=== PATIENT | male | born 1980 | race Caucasian/White ===

== ENCOUNTER 2017-12-16 20:47 | Inpatient (IN) | payer MEDICAID, OTHER ==
[~2017-12-16] VITALS: Ht 180.3 cm; Wt 85.8 kg
[2017-12-16 23:00] LABS: Amphetamine Screen, Urine POSITIVE (NEGATIVE); Barbiturate Scree,Urine NEGATIVE (NEGATIVE); Benzodiazephine Screen, Urine NEGATIVE (NEGATIVE); Cannabinoid Screen, Urine NEGATIVE (NEGATIVE); Cocaine Screen, Urine NEGATIVE (NEGATIVE); Opiate Scree,Urine NEGATIVE (NEGATIVE); Phencyclidine Screen, Urine NEGATIVE (NEGATIVE)
[2017-12-17 04:53] LABS: Hemoglobin 12.1 g/dL (13.5-17.5)
[2017-12-17 04:56] LABS: Hematocrit 34.7 % (41.0-53.0); Mean Corpuscular Hemoglobin 35.1 pg (28.0-32.0); Mean Corpuscular Hgb Conc. 34.8 g/dL (32.0-36.0); Platelet Count (auto) 79 10^3/uL (140-450); Red Blood Cells 3.44 10^6/uL (4.5-5.90); Red Cell Distribution Width 13.2 % (11.8-14.3); White Blood Cell 5.8 10^3/uL (4.4-10.8)
[2017-12-17 05:12] LABS: INR 1.05 (0.9-1.15); Partial Thromboplastin Time 27.3 sec (23.78-33.04); Prothrombin Time 11.2 sec (9.27-12.13)
[2017-12-17 05:14] LABS: Band Neutrophils % (manual) 0; Blast Cells 0; Metamyelocytes % 0; Myelocytes % 0; Promyelocytes % 0; Reactive Lymphocytes 0
[2017-12-17 05:18] LABS: Alanine Aminotransferase 75 U/L (16-61); Albumin 3.4 g/dL (3.4-5.0); Alkaline Phosphatase 269 U/L (45-117); Anion Gap 15 (5-15); Aspartate Aminotransferase 168 U/L (15-37); BUN/Creatinine Ratio 22.5; Bilirubin, Total 2.9 mg/dL (0.2-1.0); Blood Urea Nitrogen 18 mg/dL (7-18); Calcium 8.5 mg/dL (8.5-10.1); Carbon Dioxide 19 mmol/L (21-32); Chloride 102 mmol/L (98-107); GFR African American 141 mL/min; GFR Non-African American 116 mL/min; Glucose 98 mg/dL (74-106); Sodium 136 mmol/L (136-145)
[2017-12-17 05:25] LABS: Potassium 2.6 mmol/L (3.5-5.1)
[2017-12-17] MEDS ORDERED: POTASSIUM CHL 20MEQ/100ML 200 ML IV ONE (05:30)
[2017-12-17] MEDS ORDERED: POTASSIUM CHL 20 Meq TABLET PO ONE ×2 (05:30→06:00)
[2017-12-17] MEDS: POTASSIUM CHL 20MEQ/100ML 100 ML IV SCH ×2 (05:30→08:00)
[2017-12-17 05:51] LABS: Basophils % (manual) 1 (0.0-2.0); Eosinophils % (manual) 1 (0-7); Lymphocytes % (manual) 22 (10.0-50.0); Monocytes % (manual) 15 (0-12)
[2017-12-17] MEDS ORDERED: LORazepam 2MG/ML-1ML VIAL ONE (05:56)
[2017-12-17] MEDS ORDERED: LORazepam 2MG/ML-1ML VIAL IV ONE ×2 (06:00→09:00)
[2017-12-17] MEDS ORDERED: ACETAMINOPHEN 500 MG TAB PO PRN (07:15)
[2017-12-17] MEDS ORDERED: ONDANSETRON HCL 4 MG/2 ML VIAL IV PRN (07:15)
[2017-12-17] MEDS ORDERED: HALOPERIDOL LACTATE 5 MG/ML INJ VIAL IM ONE (09:15)
[2017-12-17] MEDS ORDERED: diphenhdrAMINE HCL 50 MG/1 ML VL IV ONE (09:15)
[2017-12-17] MEDS ORDERED: LORazepam 2MG/ML-1ML VIAL IV PRN (09:45)
[2017-12-17] MEDS ORDERED: LABETALOL HCL 5 MG/ML ML 20ML VIAL IV PRN (14:45)
[2017-12-17 14:59] LABS: Urine Bacteria NONE SEEN /hpf (None Seen); Urine Blood 3+ /uL (Negative); Urine Mucus FEW (None Seen); Urine Specific Gravity 1.027 (1.001-1.035); Urine WBC 36 /hpf (0 - 3)
[2017-12-17 15:23] LABS: Calcium 8.2 mg/dL (8.5-10.1); Potassium 3.8 mmol/L (3.5-5.1)
[2017-12-17] MEDS ORDERED: SODIUM CHLORIDE 0.9% 1,000 ML IV ONE (22:30)
[2017-12-17] MEDS: ceFAZolin 1GM/50ML 50 ML IV SCH (23:50)
[2017-12-18 01:47] VITALS: BP 120/57
[2017-12-18 02:20] VITALS: BP 120/57
[2017-12-18 05:24] VITALS: BP 128/60
[2017-12-18] MEDS: ceFAZolin 1GM/50ML 50 ML IV SCH ×2 (06:16→14:00)
[2017-12-18 07:36] LABS: Basophils # (auto) 0.1 uL; Eosinophils # (auto) 0.3 uL; Lymphocytes # (auto) 0.8 uL; Monocytes # (auto) 0.8 uL; Neutrophils # (auto) 2.4 uL; Nucleated Red Blood Cells % 0.1 %; Platelet Count (auto) 87 10^3/uL (140-450); Red Cell Distribution Width 13.5 % (11.8-14.3); White Blood Cell 4.4 10^3/uL (4.4-10.8)
[2017-12-18 07:38] LABS: Basophils % (auto) 2.6 % (0.0-2.0); Eosinophils % (auto) 5.9 % (0.0-7.0); Hematocrit 33.2 % (41.0-53.0); Hemoglobin 11.6 g/dL (13.5-17.5); Lymphocytes % (auto) 18.6 % (10.0-50.0); Mean Corpuscular Hemoglobin 35.7 pg (28.0-32.0); Mean Corpuscular Hgb Conc. 34.9 g/dL (32.0-36.0); Mean Corpuscular Volume 102.3 fL (80.0-100.0); Monocytes % (auto) 17.3 % (0.0-12.0); Neutrophils % (auto) 55.6 % (37.0-80.0); Red Blood Cells 3.25 10^6/uL (4.5-5.90)
[2017-12-18 07:51] LABS: Calcium 8.2 mg/dL (8.5-10.1); Potassium 3.1 mmol/L (3.5-5.1)
[2017-12-18 08:37] VITALS: BP 123/72
[2017-12-18] MEDS ORDERED: POTASSIUM CHLORIDE 8 MEQ TAB PO ONE (12:00)
[2017-12-18 13:00] VITALS: BP 118/68
== END 2017-12-18 15:00 | disposition home or self-care (01) | DRG 812 ==
LOC: ER 20:47 → TELE 20:48 → TELE-WESTW 12-17 21:45
PROVIDERS: ADMIT Nurse Practitioner Family; ATTEND Internal Medicine
DX: T43.621A Poisoning by amphetamines, accidental (unintentional), initial encounter (principal); G92 Toxic encephalopathy; R65.10 Systemic inflammatory response syndrome (SIRS) of non-infectious origin without acute organ dysfunction; I10 Essential (primary) hypertension; F15.10 Other stimulant abuse, uncomplicated; E87.6 Hypokalemia; B15.9 Hepatitis A without hepatic coma; Y92.89 Other specified places as the place of occurrence of the external cause
CPT/HCPCS: 36415; 51702; 71045; 80048; 80053; 80307; 81001; 82962; 84484; 85007; 85025; 85027; 85610; 85730; 94761; 96361; 96372; 96374; 96375; 99291; A4565; J0690; J3480

== ENCOUNTER 2020-03-24 11:34 | Emergency (ER) | payer MEDICAID ==
[~2020-03-24] VITALS: Ht 180.3 cm; Wt 109.8 kg
[2020-03-24 11:49] VITALS: BP 139/92
== END 2020-03-24 14:18 | disposition home or self-care (01) ==
LOC: ER 11:34
DX: S43.401A Unspecified sprain of right shoulder joint, initial encounter (principal); S00.81XA Abrasion of other part of head, initial encounter; W19.XXXA Unspecified fall, initial encounter; Y93.89 Activity, other specified; Y92.89 Other specified places as the place of occurrence of the external cause; Y99.8 Other external cause status
CPT/HCPCS: 73030